=== PATIENT | female | born 2000 | race Caucasian/White ===

== ENCOUNTER 2018-12-15 02:33 | Emergency (ER) | payer SELFPAY ==
[~2018-12-15] VITALS: Ht 167.6 cm; Wt 59.9 kg
--- NOTE | 2018-12-15 02:45 | NUR ---
PATIENT BIB [facility] FROM HOME FOR C/O N/V X3 EPISODE 2HRS [employer]. PATIENT WITH NO OTHER COMPLAINT NOTED
[2018-12-15] MEDS ORDERED: ONDANSETRON ODT 4 MG TAB.RAPDIS ONE (03:04)
[2018-12-15 03:15] LABS: *URINE HCG, QUAL NEGATIVE (NEGATIVE)
[2018-12-15] MEDS ORDERED: ONDANSETRON ODT 4 MG TAB.RAPDIS SL ONE (03:15)
--- NOTE | 2018-12-15 03:50 | NUR ---
PATIENT TOLERATED PO CHALLENG. NO N/V NOTED
--- NOTE | 2018-12-15 03:56 | NUR ---
Patient discharged to home in stable conditon. Written and verbal after care instructions given. Patient verbalizes understanding of instructions. WALKED OUT OF ER WITH NO DISTRESS NOTED
[2018-12-15 03:58] VITALS: BP 128/76
== END 2018-12-15 03:59 | disposition home or self-care (01) ==
LOC: ER 02:35
DX: R11.2 Nausea with vomiting, unspecified (principal)
CPT/HCPCS: 84703; A4663; Q0162